=== PATIENT | male | born 1955 | race Caucasian/White ===

== ENCOUNTER 2024-02-04 11:12 | Emergency (ER) | payer SELFPAY ==
[2024-02-04 11:58] VITALS: BP 134/74; PULSE 76; RESP 18; TEMP 36.8; O2SAT 92
--- NOTE | 2024-02-04 12:05 | W.ED.RECABL ---
HPI - Recheck/Abnormal Lab/Rx General: Chief Complaint: General Medical Stated Complaint: needs refill on heart medication, maltese tourist Time Seen by Provider: 02/04/24 12:03 Source: patient and family Mode of arrival: ambulatory Limitations: no limitations History of Present Illness: Patient is a nice 68-year-old male who presents to ED today along with a friend with a request for a medication refill. Patient states he takes flecainide 100 mg up to 3 times daily for his atrial fibrillation. Patient states he is visiting from [place] and thought he packed enough medication for his stay however states he is down to only a few tablets and still has 10 days left before he goes back home. He is requesting a refill. He has no symptoms at this time. MD complaint: medication refill request Returns today for: request for prescription Symptoms since prior visit: no new symptoms Context: ran out of medication (almost out) Associated symptoms: none Review of Systems Card: Reports: irregular heart rhythm (chronic hx of atrial fibrillation); Denies: chest pain, edema, swelling of feet/ankles, syncope, pre-syncope, dyspnea on exertion, orthopnea, leg pain with exertion or acrocyanosis Resp: Denies: dyspnea Neuro: Denies: headache(s) or dizziness Physical Exam Const: COMMON NORMALS: no acute distress, average body habitus, patient oriented x3, no limitations, healthy appearing, alert and well nourished Chest: COMMONS NORMALS: normal inspection of the chest and normal palpation of entire chest wall Resp: COMMON NORMALS: normal respiratory effort and clear to auscultation bilaterally AUSCULTATION: clear to auscultation bilaterally Cardio: COMMON NORMALS: regular rate RATE: regular rate RHYTHM: abnormal rhythm irregularly irregular (hx of atrial fibrillation) Neuro: COMMON NORMALS: patient oriented x3 SENSORIUM/ORIENTATION: Yes alert Course Vital Signs: Vital signs: Vital Signs Temperature 98.2 F 02/04/24 11:58 Pulse Rate 76 02/04/24 11:58 Respiratory Rate 18 02/04/24 11:58 Blood Pressure 134/74 02/04/24 11:58 Pulse Oximetry 92 02/04/24 11:58 Oxygen Delivery Me thod Room Air 02/04/24 11:58 MDM - Recheck/Abnormal Lab/Rx Medical Decision Making Patient has no symptoms at this time to warrant emergent workup. He will be provided a refill of his medications. Return ED precautions given. No radiology studies performed this visit Discharge Plan Discharge Patient Disposition: Home Clinical Impression: Medication refill Condition: Stable Prescriptions: New flecainide 100 mg tablet 100 mg PO Q8H Qty: 30 0RF Discharge Orders: Discharge ED (Routine); Ordered 02/04/24 Ordered By: Dia Jacinto Coding Level of Care Code ED Biological Technical Officer for Jesus Feldman
--- NOTE | 2024-02-04 12:18 | PC.NURSE ---
PT WAS ON IN VF UPON DISCHARGE. [employer] FISH[employer] VESSEL STATED PT WALKED OUT OF VF AND WAS LEAD TO PHARMACY BY SUZANNA.
== END 2024-02-04 12:19 | disposition home or self-care (01) ==
PROVIDERS: Emergency Provider Physician Assistant
DX: Z76.0 Encounter for issue of repeat prescription (principal); I48.20 Chronic atrial fibrillation, unspecified
CPT/HCPCS: 99281